=== PATIENT | female | born 1960 | race African-American/Black ===

== ENCOUNTER 2018-04-16 11:38 | Emergency (ER) | payer MEDICAID ==
[~2018-04-16] VITALS: Ht 167.6 cm; Wt 90.7 kg
[~2018-04-16 11:38] MED LIST: AUGMENTIN 875-1 EAC1 ORAL; CILOXAN 0.3% O1 DROP BOTH EYES; IBUPROFEN600 MG ORAL; PRILOSEC20 MG ORAL
[2018-04-16] MEDS ORDERED: ATENOLOL25 MG ORAL (11:55)
[2018-04-16] MEDS ORDERED: QUINAPRIL HCL20 MG PO (11:55)
[2018-04-16 12:04] VITALS: BP 124/84
[2018-04-16] MEDS ORDERED: Bupivacaine 0.5% Inj 30 ml vial INJ ONE (12:17)
[2018-04-16] MEDS ORDERED: Bupivacaine w/Epi 0.5% 30ml Vial INJ ONE (12:30)
--- NOTE | 2018-04-16 12:31 | Diagnostic Imaging Report ---
EXAM: XR Left Hand Complete, 3 or More Views CLINICAL HISTORY: PAIN TECHNIQUE: Frontal, lateral and oblique views of the left hand. COMPARISON: No relevant prior studies available. FINDINGS: Bones/joints: Posterior dislocation of the fifth digit at the proximal interphalangeal joint with mild retraction. No acute fracture seen. No osseous erosions are noted. Soft tissues: Unremarkable. No radiopaque foreign body. IMPRESSION: Posterior dislocation of the fifth digit at the proximal interphalangeal joint with mild retraction.
[2018-04-16] MEDS ORDERED: IBUPROFEN400 MG ORAL (12:56)
--- NOTE | 2018-04-16 13:03 | Emergency Room Report ---
History of Present Illness General Chief Complaint: Upper Extremity Injury Source: Patient Present Illness HPI Patient is a 58-year-old female who presented after the right small finger pain. The patient reports having previously been told that she had a dislocation to the right small finger. Patient is right-hand dominant. She denies other locations of injury. The patient states she slammed this into a door. Patient states she been having increased pain since injury. This occurred several days prior to arrival. Allergies: Coded Allergies: No Known Allergies (Unverified , 03/26/14) Patient History Past Medical History: see triage record Last Menstrual Period: Unk date Now: No Reviewed Nursing Documentation: PMH: Agreed; PSxH: Agreed Nursing Documentation-PMH Hx Hypertension: Yes Review of Systems All Other Systems: negative except mentioned in HPI Physical Exam Vital Signs Date Time Temp Pulse Resp B/P (MAP) Pulse Ox O2 Delivery O2 Flow Rate FiO2 04/16/18 11:53 98.4 60 17 124/84 94 Room Air 98.4 General Appearance: well appearing, no apparent distress, alert, GCS 15, non- toxic Head: normocephalic, atraumatic ENT: hearing grossly normal, normal voice Neck: full range of motion, supple Respiratory: no respiratory distress, speaking full sentences Musculoskeletal: swelling - right small finger deformity, no lacerations Neurologic: normal gait Psychiatric: mood/affect normal Skin: no rash Procedures Joint Reduction Joint Reduction : Consent: Emergent Joint Reduction Site: other - right small finger Procedural Sedation: No Reduction Attempts: Other - two Pre-Procedure NV Exam: Yes Post-Procedure NV Exam: Yes Post Joint Reduction Film: joint reduced Patient Tolerated: Well Complications: None Medical Decision Making Diagnostic Impression: Primary Impression: Dislocation, finger closed ER Course Patient presented for right small finger pain. Differential diagnosis included was not limited to fracture, dislocation, sprain among others. X-ray imaging of the right small finger showed a dorsal dislocation of the PIP joint without evident fracture. Digital block was performed. Patient finger was reduced with axial traction. The patient tolerated well. The patient placed in aluminum splint. Post procedure x-ray showed adequate reduction.The patient is advised to follow up with primary care doctor in 1-2 days. Patient is advised to return if any worsening condition or if any changes in status that are concerning. This report is dictated with [employer] software which may occasionally lead to discrepancies related to use of this software. Last Vital Signs Date Time Temp Pulse Resp B/P (MAP) Pulse Ox O2 Delivery O2 Flow Rate FiO2 04/16/18 12:04 98.4 88 17 124/84 94 Room Air 98.4 Status: improved Disposition: HOME, SELF-CARE Condition: Stable Scripts Ibuprofen* (MOTRIN*) 400 Mg Tablet 400 MG ORAL Q8H, #30 TAB 0 Refills Prov: Mich Boone MD 04/16/18 Patient Instructions: Finger or Thumb Dislocation Mich Boone MD Apr 16, 2018 13:03
[2018-04-16 13:26] VITALS: BP 124/84
--- NOTE | 2018-04-16 13:53 | Diagnostic Imaging Report ---
EXAM: XR Right Hand Complete, 3 or More Views CLINICAL HISTORY: PAIN TECHNIQUE: Frontal, lateral and oblique views of the right hand. COMPARISON: No relevant prior studies available. FINDINGS: Bones/joints: Post reduction films demonstrating normal alignment of the fifth digit. No residual dislocation seen. No fracture identified. Mild degenerative changes in the interphalangeal joints. Soft tissues: Unremarkable. No radiopaque foreign body. IMPRESSION: Post reduction films demonstrating normal alignment of the fifth digit. No residual dislocation seen. No fracture identified.
== END 2018-04-16 13:34 | disposition home or self-care (01) ==
LOC: EMR 12:10
DX: S63.256A Unspecified dislocation of right little finger, initial encounter (principal); I10 Essential (primary) hypertension
CPT/HCPCS: 26770; 73130; 99284; J3490; Z7502

== ENCOUNTER 2019-06-05 22:41 | Emergency (ER) | payer MEDICAID ==
[~2019-06-05] VITALS: Ht 167.6 cm; Wt 90.7 kg
[~2019-06-05 22:41] MED LIST changes: +ATENOLOL25 MG ORAL; +IBUPROFEN400 MG ORAL; +QUINAPRIL HCL20 MG PO
[2019-06-05] MEDS ORDERED: OMEPRAZOLE40 M1 ORAL (22:53)
[2019-06-05 22:55] VITALS: BP 143/76
--- NOTE | 2019-06-05 22:55 | NUR ---
ED Nurse Note: PATIENT AMBULATED TO ED C/O SYCOPAL EPISODE AND DIZZINESS AT [employer] X 1700. PT REPORTS LOC X 20 MIN AND HIT HEAD. WITNESSED BY UNKNOWN BYSTANDER.
[2019-06-05 23:19] LABS: BASOPHILS % (AUTO) 1.6 % (0.0-2.0); EOSINOPHILS % (AUTO) 0.3 % (0.0-3.0); HEMATOCRIT 44.8 % (37.0-47.0); HEMOGLOBIN 14.3 G/DL (12.0-16.0); LYMPHOCYTES % (AUTO) 23.4 % (20.0-45.0); MEAN CORPUSCULAR VOLUME 87 FL (80-99); NEUTROPHILS % (AUTO) 68.7 % (45.0-75.0); PLATELET COUNT 220 K/UL (150-450); RED BLOOD COUNT 5.15 M/UL (4.20-5.40); RED CELL DISTRIBUTION WIDTH 13.4 % (11.6-14.8); WHITE BLOOD COUNT 8.8 K/UL (4.8-10.8)
--- NOTE | 2019-06-05 23:28 | NUR ---
ED Nurse Note: CHEST XRAY AND CT COMPELTE
--- NOTE | 2019-06-05 23:32 | NUR ---
ED Nurse Note: PT SON (PAOMAR) AT BEDSIDE
[2019-06-05 23:39] LABS: ANION GAP 9 mmol/L (5-15); BLOOD UREA NITROGEN 19 mg/dL (7-18); CALCIUM 9.2 MG/DL (8.5-10.1); CARBON DIOXIDE 27 MMOL/L (21-32); CHLORIDE 106 MMOL/L (98-107); CREATININE 1.1 MG/DL (0.55-1.30); POTASSIUM 3.9 MMOL/L (3.5-5.1); SODIUM 142 MMOL/L (136-145)
--- NOTE | 2019-06-05 23:49 | Diagnostic Imaging Report ---
CT HEAD WITHOUT CONTRAST INDICATION: Dizziness with syncope and head strike Technique: Continuous helical CT scanning of the head was performed without intravenous contrast material. Axial and coronal 5 mm sections were generated. Radiation dose was minimized using automated exposure control DOSE: Total Dose Length Product - DLP 1309.[address] Dose Index - CTDIvol(s) 70.38 mGy. COMPARISON: None available FINDINGS: There is no acute intracranial hemorrhage, mass effect or cortical edema. The ventricles, cisterns and sulci are normal for age. Visualized mastoid air cells and paranasal sinuses are unremarkable. No focal lesions of the bony calvarium or soft tissues of the scalp are seen. IMPRESSION: No evidence of acute intracranial hemorrhage, mass effect or cortical edema. MRI may be obtained for more sensitive evaluation as clinically indicated. These findings are concordant with the [employer] preliminary report. The CT scanner at [facility] is accredited by the [employer] and the scans are performed using protocols designed to limit radiation exposure to as low as reasonably achievable to attain images of sufficient resolution adequate for diagnostic evaluation.
[2019-06-05 23:53] LABS: ALANINE AMINOTRANSFERASE 22 U/L (12-78); ALBUMIN 3.9 G/DL (3.4-5.0); ALKALINE PHOSPHATASE 133 U/L (46-116); ASPARTATE AMINO TRANSFERASE 16 U/L (15-37); BILIRUBIN,TOTAL 0.4 MG/DL (0.2-1.0); CKMB 1.8 NG/ML (0.0-3.6); CREATINE KINASE 154 U/L (26-308)
[2019-06-06 00:39] VITALS: BP 134/77
[2019-06-06 00:52] LABS: APPEARANCE,URINE CLEAR; BILIRUBIN, URINE NEGATIVE (NEGATIVE); COLOR,URINE PALE YELLOW; GLUCOSE, URINE (UA) NEGATIVE (NEGATIVE); KETONES,URINE NEGATIVE (NEGATIVE); LEUKOCYTE ESTERASE ,URINE NEGATIVE (NEGATIVE); NITRITE,URINE NEGATIVE (NEGATIVE); PH,URINE 6 (4.5-8.0); PROTEIN,URINE NEGATIVE (NEGATIVE); UROBILINOGEN,URINE NORMAL MG/DL (0.0-1.0)
--- NOTE | 2019-06-06 01:02 | Emergency Room Report ---
History of Present Illness General Chief Complaint: Syncope Source: Patient Present Illness HPI Patient presents with complaints of syncopal episode patient reports that she was standing in line at the store When she started to feel lightheaded She had a full syncopal episode And reports that she was seen by bystanders hitting her head Denies any focal deficit she does have a headache Denies any chest pain denies any back or flank pain denies any recent change in medications denies any saddle paresthesia Allergies: Coded Allergies: No Known Allergies (Unverified , 03/26/14) Patient History Past Medical History: see triage record Pertinent Family History: none Now: No Reviewed Nursing Documentation: PMH: Agreed; PSxH: Agreed Nursing Documentation-PMH Past Medical History: No History, Except For Hx Hypertension: Yes Review of Systems All Other Systems: negative except mentioned in HPI Physical Exam Vital Signs Date Time Temp Pulse Resp B/P (MAP) Pulse Ox O2 Delivery O2 Flow Rate FiO2 06/05/19 22:50 98.1 68 21 143/76 (98) 100 Room Air Sp02 EP Interpretation: reviewed, normal General Appearance: well appearing, no apparent distress Head: normocephalic, atraumatic Eyes: bilateral eye PERRL, bilateral eye EOMI ENT: hearing grossly normal, normal pharynx, TMs + canals normal, uvula midline Neck: full range of motion, supple, no meningismus, no bony tend Respiratory: lungs clear, normal breath sounds, no rhonchi, no respiratory distress, no retraction, no accessory muscle use Cardiovascular #1: normal peripheral pulses, regular rate, rhythm, no edema, no gallop, no JVD, no murmur Gastrointestinal: normal bowel sounds, non tender, soft, no mass, no organomegaly, non-distended, no guarding, no hernia, no pulsatile mass, no rebound Genitourinary: no CVA tenderness Musculoskeletal: normal inspection Neurologic: oriented x3, responsive, renewals manager III-XII nml as tested, motor strength/ tone normal, sensory intact Psychiatric: mood/affect normal Skin: no rash Lymphatic: normal inspection, no adenopathy Medical Decision Making Diagnostic Impression: Primary Impression: Syncope ER Course Patient is a fairly complex patient with multiple differential to consideration including but not limited to cardiac cardiopulmonary and vascular emergencies Given the patient's traumatic injury and headache CT imaging was also warranted does not show any acute disease Patient's initial blood work are appropriate EKG shows nonspecific findings and patient requires further inpatient care Labs Test 06/05/19 23:00 06/06/19 00:25 White Blood Count 8.8 K/UL (4.8-10.8) Red Blood Count 5.15 M/UL (4.20-5.40) Hemoglobin 14.3 G/DL (12.0-16.0) Hematocrit 44.8 % (37.0-47.0) Mean Corpuscular Volume 87 FL (80-99) Mean Corpuscular Hemoglobin 27.9 PG (27.0-31.0) Mean Corpuscular Hemoglobin Concent 32.0 G/DL (32.0-36.0) Red Cell Distribution Width 13.4 % (11.6-14.8) Platelet Count 220 K/UL (150-450) Mean Platelet Volume 8.9 FL (6.5-10.1) Neutrophils (%) (Auto) 68.7 % (45.0-75.0) Lymphocytes (%) (Auto) 23.4 % (20.0-45.0) Monocytes (%) (Auto) 6.0 % (1.0-10.0) Eosinophils (%) (Auto) 0.3 % (0.0-3.0) Basophils (%) (Auto) 1.6 % (0.0-2.0) Sodium Level 142 MMOL/L (136-145) Potassium Level 3.9 MMOL/L (3.5-5.1) Chloride Level 106 MMOL/L (98-107) Carbon Dioxide Level 27 MMOL/L (21-32) Anion Gap 9 mmol/L (5-15) Blood Urea Nitrogen 19 mg/dL (7-18) Creatinine 1.1 MG/DL (0.55-1.30) Estimat Glomerular Filtration Rate > 60 mL/min (>60) Glucose Level 86 MG/DL (74-106) Calcium Level 9.2 MG/DL (8.5-10.1) Total Bilirubin 0.4 MG/DL (0.2-1.0) Aspartate Amino Transf (AST/SGOT) 16 U/L (15-37) Alanine Aminotransferase (ALT/SGPT) 22 U/L (12-78) Alkaline Phosphatase 133 U/L (46-116) Total Creatine Kinase 154 U/L (26-308) Creatine Kinase MB 1.8 NG/ML (0.0-3.6) Creatine Kinase MB Relative Index 1.1 Troponin I 0.000 ng/mL (0.000-0.056) Total Protein 7.7 G/DL (6.4-8.2) Albumin 3.9 G/DL (3.4-5.0) Globulin 3.8 g/dL Albumin/Globulin Ratio 1.0 (1.0-2.7) Urine Color Pale yellow Urine Appearance Clear Urine pH 6 (4.5-8.0) Urine Specific Maribel 1.010 (1.005-1.035) Urine Protein Negative (NEGATIVE) Urine Glucose (UA) Negative (NEGATIVE) Urine Ketones Negative (NEGATIVE) Urine Blood Negative (NEGATIVE) Urine Nitrite Negative (NEGATIVE) Urine Bilirubin Negative (NEGATIVE) Urine Urobilinogen Normal MG/DL (0.0-1.0) Urine Leukocyte Esterase Negative (NEGATIVE) EKG Diagnostic Results Rate: normal Rhythm: NSR ST Segments: other - Specific ST T wave changes Rhythm Strip Diag. Results EP Interpretation: yes Rate: 70 Rhythm: NSR, no PVC's, no ectopy Chest X-Ray Diagnostic Results Chest X-Ray Diagnostic Results : Chest X-Ray Ordered: Yes # of Views/Limited/Complete: 1 View Indication: Chest Pain EP Interpretation: Yes Interpretation: no consolidation, no effusion, no pneumothorax Impression: No acute disease Electronically Signed by: John Luque DO CT/MRI/US Diagnostic Results CT/MRI/US Diagnostic Results : Impression CT head no acute disease Last Vital Signs Date Time Temp Pulse Resp B/P (MAP) Pulse Ox O2 Delivery O2 Flow Rate FiO2 06/06/19 00:39 98.5 60 19 134/77 100 Room Air Status: improved Disposition: XFER [facility] Condition: Improved Referrals: [facility]ERR[facility] (PCP) John Luque DO Jun 06, 2019 01:02
--- NOTE | 2019-06-06 01:56 | NUR ---
ED Nurse Note: telephone report given to ELIZABETH Denise from [place] [facility]
[2019-06-06 01:57] VITALS: BP 143/54
--- NOTE | 2019-06-06 01:57 | NUR ---
ED Nurse Note: pt transferred. [facility] unti 24 at bedside, pt shows no acute signs of distress. vss. skin intact. family is aware of transport. pt is aox4. all belongings have been given to patient.
--- NOTE | 2019-06-06 12:34 | Diagnostic Imaging Report ---
Indication: Reason For Exam: CP Technique: Single AP view of the chest. Comparison: Chest radiograph dated 11/11/2014 Findings: The cardiomediastinal silhouette is within normal limits. There is no focal consolidation, pneumothorax or pleural effusion. Osseous structures demonstrate no acute abnormality. IMPRESSION: No radiographic evidence of acute cardiopulmonary disease.
== END 2019-06-06 01:57 | disposition short-term general hospital (02) ==
LOC: EMR 23:10
DX: R55 Syncope and collapse (principal); I10 Essential (primary) hypertension
CPT/HCPCS: 36415; 70450; 71045; 80053; 81003; 82550; 82553; 84484; 85025; 93005; 99284

== ENCOUNTER 2019-06-24 20:22 | Emergency (ER) | payer MEDICAID ==
[~2019-06-24] VITALS: Ht 167.6 cm; Wt 90.7 kg
[~2019-06-24 20:22] MED LIST changes: +OMEPRAZOLE40 M1 ORAL
--- NOTE | 2019-06-24 20:48 | NUR ---
ED Nurse Note: pt walked in c/o neck pain for couple of days, denies any recent injuries. airway intact, noted mild tenderness, will cont monitor.
[2019-06-24 20:49] VITALS: BP 145/82
[2019-06-24] MEDS ORDERED: ROBAXIN-750750 MG PO (20:51)
[2019-06-24] MEDS ORDERED: TYLENOL EXTRA500 MG ORAL (20:51)
--- NOTE | 2019-06-24 20:54 | Emergency Room Report ---
History of Present Illness General Chief Complaint: Neck Pain Source: Patient, Medical Record Present Illness HPI Disclaimer: Please note that this report is being documented using [employer] technology. This can lead to erroneous entry secondary to incorrect interpretation by the dictating instrument. HPI: This a 59-year-old female with history of hypertension presenting for evaluation of neck pain. There was no trauma and symptoms began 2 to 3 days ago. She notes tension on the lateral aspects of the neck and denies any midline tension. Denies any weakness, paresthesias or changes in range of motion of the upper extremities. Pain is worse with rotation of the neck and flexion. Denies fevers, injecting medications or IV drugs, lower extremity weakness, lower back pain. Notes intermittent mild headaches without changes in vision, no photophobia, no autophobia, no nausea no vomiting is otherwise in her usual state of health. Took 500 mg Tylenol one time which did not significantly improve her symptoms. Has an appointment to follow-up with her PMD in 2 weeks. PMH: Hypertension PSH: Denies Allergies: None Social Hx: [place] drug or alcohol abuse Allergies: Coded Allergies: No Known Allergies (Unverified , 03/26/14) Nursing Documentation-PMH Past Medical History: No History, Except For Hx Hypertension: Yes Review of Systems All Other Systems: negative except mentioned in HPI Physical Exam Vital Signs Date Time Temp Pulse Resp B/P (MAP) Pulse Ox O2 Delivery O2 Flow Rate FiO2 06/24/19 20:34 97.5 65 18 145/82 (103) 98 Room Air General: Awake and alert, no acute distress HEENT: NC/AT. EOMI. Neck: Supple, trachea midline Resp: Normal work of breathing Skin: Intact. No abrasions, laceration or rash over the exposed skin MSK: Normal tone and bulk. Moving all extremities. No obvious deformity. No limitation of range of motion in the upper extremities of the shoulders, elbows wrists and hands. Neuro: Awake and alert. Mentating appropriately. Sensation is intact over the dermatomes of the upper extremities bilaterally. Strength is 5/5 at all major muscle groups. Back/Spine: No midline tenderness in the cervical, thoracic or lumbosacral spine. There is significant paraspinal tenderness as well as tenderness over the trapezius and supraspinatus bilaterally. No limitation in range of motion on flexion extension rotation of the neck Medical Decision Making Diagnostic Impression: Primary Impression: Back muscle spasm Additional Impression: Neck pain ER Course 59-year-old female presents for evaluation of atraumatic neck pain of the past few days. Symptoms consistent with muscular spasm in the upper back as it is off the midline, there is no trauma and the patient has no neurologic symptoms. Will continue on extra strength Tylenol and prescribe Robaxin. We will give a dose of Toradol and Robaxin in the emergency department prior to departure. She has an appointment to follow-up with her PMD in the next 2 weeks. Discussed reasons to return to the emergency department with patient and family were present at bedside. She understands and agrees with this treatment plan will be discharged home. Last Vital Signs Date Time Temp Pulse Resp B/P (MAP) Pulse Ox O2 Delivery O2 Flow Rate FiO2 06/24/19 20:49 97.5 65 18 145/82 98 Room Air Disposition: HOME, SELF-CARE Condition: Stable Scripts Methocarbamol* (ROBAXIN-750*) 750 Mg Tablet 750 MG PO TID, #21 TAB 0 Refills Prov: Eamon Boone MD 06/24/19 Acetaminophen* (TYLENOL EXTRA STRENGTH*) 500 Mg Tablet 500 MG ORAL Q6H PRN for Mild Pain/Temp > 100.5, #40 TAB 0 Refills Prov: Eamon Boone MD 06/24/19 Referrals: Erinn [facility] Patient Instructions: Heat Therapy Additional Instructions: Please continue to stretch, sit in warm baths and stay mobile to avoid further cramping in the upper back. He will be continued on Tylenol 500 mg every 6 hours and we will add Robaxin 3 times daily for 5 days to help with muscle spasm. If you have any worsening back pain, numbness or tingling in the hands, weakness in the arms, develop headaches or any other sudden changes to your health please return to the emergency department. Keep your appointment scheduled you with your PMD in the next 2 weeks for reevaluation to discuss emergency department visit. Return to the emergency department anytime with new or worsening symptoms Eamon Boone MD Jun 24, 2019 20:54
[2019-06-24 21:00] VITALS: BP 140/86
[2019-06-24] MEDS ORDERED: Methocarbamol 750mg tab ORAL ONE (21:00)
[2019-06-24] MEDS ORDERED: Ketorolac 30mg Inj IM ONE (21:00)
--- NOTE | 2019-06-24 21:00 | NUR ---
ED Nurse Note: pt cleared to be d/c per ERMD, pt discharge and aftercare instruction provided w/ prescription, pt education done via discussion and hand out, pt advised to follow up with pcp or return to ed if changes in condition, vss, ambulatory w/ steady gait, accompanied by son left w/ all belongings.
== END 2019-06-24 21:00 | disposition home or self-care (01) ==
LOC: EMR 20:51
DX: M54.2 Cervicalgia (principal); M62.830 Muscle spasm of back; I10 Essential (primary) hypertension
CPT/HCPCS: 96372; 99283; J1885

== ENCOUNTER 2019-12-11 18:30 | Emergency (ER) | payer MEDICAID ==
[~2019-12-11] VITALS: Ht 170.2 cm; Wt 86.2 kg
[~2019-12-11 18:30] MED LIST changes: +ROBAXIN-750750 MG PO; +TYLENOL EXTRA500 MG ORAL
[2019-12-11] MEDS ORDERED: Nitroglycerin Subl 0.4mg tab SL PRN (19:15)
[2019-12-11] MEDS ORDERED: Aspirin Baby 81mg ORAL ONE (19:15)
--- NOTE | 2019-12-11 19:17 | Emergency Room Report ---
History of Present Illness General Chief Complaint: Chest Pain Source: Patient Present Illness HPI Disclaimer: Please note that this report is being documented using [employer] technology. This can lead to erroneous entry secondary to incorrect interpretation by the dictating instrument. HPI: 59-year-old female with a history of hypertension presents for evaluation of chest pain. She has been experiencing a mid sternal chest pressure that does not radiate for the past 2 days. It originally awoke her from sleep 2 nights ago. She denies any shortness of breath, cough or recent fever. Denies any pain rating to the back arm or neck. States the pain is exacerbated by exertion and relieved by rest. It is currently an 8/10. She did not take any medication for it prior to arrival. She says she has an episode of chest pain years ago and was evaluated emergency department and discharged but had no further follow-up after that. Has not completed any echoes, stress test or cardiac catheterizations. Denies palpitations, nausea, vomiting, diarrhea. Denies family history of CAD PMH: Hypertension PSH: Hysterectomy Allergies: None reported Social Hx: Denies alcohol, tobacco or drug use Allergies: Coded Allergies: No Known Allergies (Unverified , 03/26/14) Patient History Now: No Nursing Documentation-PMH Hx Hypertension: Yes Review of Systems All Other Systems: negative except mentioned in HPI Physical Exam Vital Signs Date Time Temp Pulse Resp B/P (MAP) Pulse Ox O2 Delivery O2 Flow Rate FiO2 12/11/19 18:42 98.2 77 18 146/88 (107) 96 Room Air General: Awake and alert, no acute distress HEENT: NC/AT. EOMI. Cardiovascular: RRR. S1 and S2 normal. No murmur appreciated Resp: Normal work of breathing. No cough, wheezing or crackles appreciated Abdomen: Abdomen is soft, nondistended. Nontender Skin: Intact. No abrasions, laceration or rash over the exposed skin MSK: Normal tone and bulk. Moving all extremities. No obvious deformity. Neuro: Awake and alert. Mentating appropriately. Medical Decision Making Diagnostic Impression: Primary Impression: Chest pain ER Course This is a 59-year-old female presenting for evaluation of chest pain of 2 days duration. Differential includes was not limited to angina, reflux, ACS,, bronchitis, pneumonia to name a few. Start a broad metabolic infectious and cardiac work-up given her presentation, risk factors and age patient will likely require admission for cardiology work-up. Laboratory Tests Test 12/11/19 19:56 White Blood Count 7.3 K/UL (4.8-10.8) Red Blood Count 4.78 M/UL (4.20-5.40) Hemoglobin 13.3 G/DL (12.0-16.0) Hematocrit 40.6 % (37.0-47.0) Mean Corpuscular Volume 85 FL (80-99) Mean Corpuscular Hemoglobin 27.9 PG (27.0-31.0) Mean Corpuscular Hemoglobin Concent 32.9 G/DL (32.0-36.0) Red Cell Distribution Width 13.4 % (11.6-14.8) Platelet Count 187 K/UL (150-450) Mean Platelet Volume 9.8 FL (6.5-10.1) Neutrophils (%) (Auto) 67.1 % (45.0-75.0) Lymphocytes (%) (Auto) 22.9 % (20.0-45.0) Monocytes (%) (Auto) 6.9 % (1.0-10.0) Eosinophils (%) (Auto) 1.4 % (0.0-3.0) Basophils (%) (Auto) 1.6 % (0.0-2.0) Sodium Level 145 MMOL/L (136-145) Potassium Level 3.7 MMOL/L (3.5-5.1) Chloride Level 107 MMOL/L (98-107) Carbon Dioxide Level 29 MMOL/L (21-32) Anion Gap 9 mmol/L (5-15) Blood Urea Nitrogen 21 mg/dL (7-18) H Creatinine 0.9 MG/DL (0.55-1.30) Estimate Glomerular Filtration Rate > 60 mL/min (>60) Glucose Level 97 MG/DL (74-106) Calcium Level 9.3 MG/DL (8.5-10.1) Total Bilirubin 0.2 MG/DL (0.2-1.0) Aspartate Amino Transferase (AST) 16 U/L (15-37) Alanine Aminotransferase (ALT) 26 U/L (12-78) Alkaline Phosphatase 132 U/L (46-116) H Troponin I 0.000 ng/mL (0.000-0.056) Total Protein 7.4 G/DL (6.4-8.2) Albumin 3.5 G/DL (3.4-5.0) Globulin 3.9 g/dL Albumin/Globulin Ratio 0.9 (1.0-2.7) L EKG Diagnostic Results EKG Time: 19:02 Rate: normal Rhythm: NSR ST Segments: no acute changes Other Impression Sinus rhythm, PAC normal intervals, nonspecific T wave changes. Faint lateral Q waves Rhythm Strip Diag. Results Rhythm Strip Time: 19:02 EP Interpretation: yes Rate: 70s Rhythm: NSR, no PVC's, no ectopy Chest X-Ray Diagnostic Results Chest X-Ray Diagnostic Results : Chest X-Ray Ordered: Yes # of Views/Limited/Complete: 1 View Indication: Chest Pain EP Interpretation: Yes Interpretation: no consolidation, no effusion, no pneumothorax, no acute cardiopulmonary disease Impression: No acute disease Electronically Signed by: Electronically signed by Dr. Eamon Boone Reevaluation Time: 20:54 Last Vital Signs Date Time Temp Pulse Resp B/P (MAP) Pulse Ox O2 Delivery O2 Flow Rate FiO2 12/11/19 18:42 98.2 77 18 146/88 (107) 96 Room Air Reevaluation Impression Labs have returned within normal limits. Troponin negative. Patient continue experience chest pain even after nitroglycerin. She did receive aspirin. Gave her morphine with more significant improvement. May be transferred to a nearby hospital where she is capitated for cardiac admission based on insurance. She is stable for transfer. Family understands and agrees. Disposition: [facility]FER [facility] Condition: Serious Eamon Boone MD Dec 11, 2019 19:17
[2019-12-11 19:30] VITALS: BP 144/88
--- NOTE | 2019-12-11 19:30 | NUR ---
ED Nurse Note: Pt ambulated to ED from home c/o CP since yesterday, 06/03 pressure substernal, non-radiating. States she has had this pain before, denies cardiac hx besides HTN. VSS, PT is A&Ox4
[2019-12-11 20:13] VITALS: BP 104/77
[2019-12-11 20:43] LABS: BASOPHILS % (AUTO) 1.6 % (0.0-2.0); EOSINOPHILS % (AUTO) 1.4 % (0.0-3.0); HEMATOCRIT 40.6 % (37.0-47.0); HEMOGLOBIN 13.3 G/DL (12.0-16.0); LYMPHOCYTES % (AUTO) 22.9 % (20.0-45.0); MEAN CORPUSCULAR VOLUME 85 FL (80-99); MONOCYTES % (AUTO) 6.9 % (1.0-10.0); NEUTROPHILS % (AUTO) 67.1 % (45.0-75.0); PLATELET COUNT 187 K/UL (150-450); RED BLOOD COUNT 4.78 M/UL (4.20-5.40); RED CELL DISTRIBUTION WIDTH 13.4 % (11.6-14.8); WHITE BLOOD COUNT 7.3 K/UL (4.8-10.8)
[2019-12-11 20:45] LABS: ANION GAP 9 mmol/L (5-15); BLOOD UREA NITROGEN 21 mg/dL (7-18); CALCIUM 9.3 MG/DL (8.5-10.1); CARBON DIOXIDE 29 MMOL/L (21-32); CHLORIDE 107 MMOL/L (98-107); CREATININE 0.9 MG/DL (0.55-1.30); POTASSIUM 3.7 MMOL/L (3.5-5.1); SODIUM 145 MMOL/L (136-145)
[2019-12-11] MEDS ORDERED: Morphine Sulfate 4mg/ml Inj (IV USE ONLY) IVP ONE (20:45)
[2019-12-11 20:47] LABS: ALANINE AMINOTRANSFERASE 26 U/L (12-78); ALBUMIN 3.5 G/DL (3.4-5.0); ALBUMIN/GLOBULIN RATIO 0.9 (1.0-2.7); ALKALINE PHOSPHATASE 132 U/L (46-116); ASPARTATE AMINO TRANSFERASE 16 U/L (15-37); BILIRUBIN,TOTAL 0.2 MG/DL (0.2-1.0)
--- NOTE | 2019-12-11 21:30 | NUR ---
ED Nurse Note: Pt resting in bed, no signs of distress, pt reports pain lessened 2/10, will continue to monitor
--- NOTE | 2019-12-11 23:15 | NUR ---
ER DISCHARGE NOTE: Patient is cleared to be discharged per ERMD, pt is aox4, on room air, with stable vital signs. pt was given dc and prescription instructions, pt was able to verbalize understanding, pt id band removed without complications. pt is stable to be taken via [facility]. pt took all belongings. Son accompanied
[2019-12-11 23:18] VITALS: BP 135/84
--- NOTE | 2019-12-12 08:55 | Diagnostic Imaging Report ---
Indication: Chest pain Technique: One view of the chest Comparison: 06/05/2019 Findings: Lungs and pleural spaces are clear. Heart size is normal. The aorta is tortuous. No significant interim change Impression: Negative
== END 2019-12-11 23:15 | disposition short-term general hospital (02) ==
LOC: EMR 19:34
DX: R07.9 Chest pain, unspecified (principal); I10 Essential (primary) hypertension; Z90.710 Acquired absence of both cervix and uterus
CPT/HCPCS: 36415; 71045; 80053; 84484; 85025; 93005; 96374; J2270; Z7502; 99284